=== PATIENT | male | born 1955 | race Caucasian/White ===

== ENCOUNTER → 2017-03-15 | Outpatient (CLI) | payer BC | LOC: BMCIMAGING 08:08 | PROVIDERS: ATTEND Internal Medicine | DX: B18.2 Chronic viral hepatitis C (principal) ==

== ENCOUNTER 2018-07-28 12:22 | Emergency (ER) | payer BC ==
[2018-07-28] MEDS ORDERED: NS 1,000 ML IV ONE (12:36)
--- NOTE | 2018-07-28 12:37 | EDPHY ---
H & P Stated Complaint: Fatigue Time Seen by Provider: 07/28/18 12:36 HPI/ROS: CHIEF COMPLAINT: Fatigue HISTORY OF PRESENT ILLNESS: The patient presents the ED with vague complaints of fatigue, decreased appetite and a sensation that he is catching a cold. He denies any fever, cough or congestion. He denies abdominal pain, vomiting or diarrhea. He has had decreased appetite over the past day. Today he complains of dry mouth as well as symptoms of positional orthostasis. The patient denies significant past medical history outside of hypertension which he takes lisinopril for. He denies any acute headache, numbness, weakness or additional neurologic complaints. REVIEW OF SYSTEMS: A comprehensive 10 point review of systems is otherwise negative aside from elements mentioned in the history of present illness. Source: Patient Exam Limitations: No limitations - Personal History Current Tetanus Diphtheria and Acellular Pertussis (TDAP): Yes - Medical/Surgical History Hx Asthma: No Hx Chronic Respiratory Disease: No Hx Diabetes: No Hx Cardiac Disease: No Hx Renal Disease: No Hx Cirrhosis: No Hx Alcoholism: No Hx HIV/AIDS: No Hx Splenectomy or Spleen Trauma: No Other PMH: htn - Social History Smoking Status: Current every day smoker - Physical Exam Exam: General Appearance: Alert, no distress Eyes: Pupils equal and round no pallor or injection ENT, Mouth: Dry mucous membranes Respiratory: There are no retractions, lungs are clear to auscultation Cardiovascular: Regular rate and rhythm Gastrointestinal: Abdomen is soft and nontender, no masses, bowel sounds normal Neurological: A&O, normal motor function, normal sensory exam, normal cranial nerves Skin: Warm and dry, no rashes Musculoskeletal: Neck is supple nontender Extremities: symmetrical, full range of motion Psychiatric: Patient is oriented X 3, there is no agitation Constitutional: Initial Vital Signs Temperature (C) 36.8 C 07/28/18 12:26 Heart Rate 90 07/28/18 12:26 Respiratory Rate 18 07/28/18 12:26 Blood Pressure 165/105 H 07/28/18 12:26 O2 Sat (%) 94 07/28/18 12:26 O2 Delivery Mode Room Air Allergies/Adverse Reactions: No Known Allergies Allergy (Verified 07/28/18 12:26) Home Medications: Medication Instructions Recorded Lisinopril 07/28/18 Medical Decision Making - Diagnostics EKG Interpretation: EKG: Complete interpretation has been separately recorded in the [email or web address] archive. Summary impression: Sinus rhythm, right axis deviation ED Course/Re-evaluation: The patient presents to the ED with vague complaints of fatigue and dry mouth. The patient is nontoxic and well-appearing. He has no arrhythmia noted in the emergency department. He is hemodynamically stable. The patient has no clinical evidence of an acute abdomen. He has a normal lung and heart exam. The patient did have an IV established. He received a L of normal saline. Laboratory studies are unremarkable. The patient is now tolerating p.o. Fluids. I find no concerning findings on his exam. It is certainly possible he has a mild viral illness. At this point time I think supportive care and observation for progressive symptoms is reasonable. Differential Diagnosis: Differential diagnosis considered includes dehydration, renal failure, metabolic abnormality, viral syndrome - Data Points Laboratory Results: Laboratory Results 07/28/18 12:33 07/28/18 12:33 07/28/18 07/28/18 07/28/18 12:39 12:33 12:33 WBC 10.69 10^3/uL H 10^3/uL (3.80-9.50) RBC 5.18 10^6/uL 10^6/uL (4.40-6.38) Hgb 16.3 g/dL g/dL (13.7-17.5) Hct 47.4 % % (40.0-51.0) MCV 91.5 fL fL (81.5-99.8) MCH 31.5 pg pg (27.9-34.1) MCHC 34.4 g/dL g/dL (32.4-36.7) RDW 12.9 % % (11.5-15.2) Plt Count 181 10^3/uL 10^3/uL (150-400) MPV 9.7 fL fL (8.7-11.7) Neut % (Auto) 72.3 % % (39.3-74.2) Lymph % (Auto) 20.3 % % (15.0-45.0) [place] % (Auto) 6.5 % % (4.5-13.0) Eos % (Auto) 0.2 % L % (0.6-7.6) Baso % (Auto) 0.3 % % (0.3-1.7) Nucleat RBC Rel Count 0.0 % % (0.0-0.2) Absolute Neuts (auto) 7.73 10^3/uL H 10^3/uL (1.70-6.50) Absolute Lymphs (auto) 2.17 10^3/uL 10^3/uL (1.00-3.00) Absolute Monos (auto) 0.70 10^3/uL 10^3/uL (0.30-0.80) Absolute Eos (auto) 0.02 10^3/uL L 10^3/uL (0.03-0.40) Absolute Basos (auto) 0.03 10^3/uL 10^3/uL (0.02-0.10) Absolute Nucleated RBC 0.00 10^3/uL 10^3/uL (0-0.01) Immature Gran % 0.4 % % (0.0-1.1) Immature Gran # 0.04 10^3/uL 10^3/uL (0.00-0.10) Sodium 136 mEq/L mEq/L (135-145) Potassium 3.8 mEq/L mEq/L (3.5-5.2) Chloride 105 mEq/L mEq/L (97-110) Carbon Dioxide 22 mEq/l mEq/l (22-31) Anion Gap 9 mEq/L mEq/L (6-14) BUN 21 mg/dL mg/dL (7-23) Creatinine 0.8 mg/dL mg/dL (0.7-1.3) Estimated GFR > 60 Glucose 146 mg/dL H mg/dL (70-100) Calcium 10.0 mg/dL mg/dL (8.5-10.4) POC Troponin I 0.00 ng/mL ng/mL (0.00-0.08) Medications Given: Discontinued Medications Sodium Chloride (Ns) 1,000 mls @ 0 mls/hr IV EDNOW ONE; Wide Open PRN Reason: Protocol Stop: 07/28/18 12:37 Last Admin: 07/28/18 12:48 Dose: 1,000 mls Point of Care Test Results: Chemistry 07/28/18 12:39 POC Troponin I 0.00 ng/mL ng/mL (0.00-0.08) Departure - Departure Disposition: Home, Routine, Self-Care Clinical Impression: Fatigue Condition: Good Instructions: Fatigue (ED) Additional Instructions: 1. Please try and increase your fluid intake. 2. The workup in the emergency department today is unrevealing. I do believe you may be experiencing a mild viral illness. Please return to the ED for any progressively worsening symptoms or other concerns. 3. Please schedule a follow-up appointment with your primary care provider if unimproved in the next 2-3 days. Referrals: Arvin Beltran MD [Primary Care Provider] - As per Instructions
[2018-07-28 12:55] LABS: PLATELET COUNT 181 10^3/uL (150-400)
--- NOTE | 2018-07-28 13:00 | CPEKG ---
Test Reason : OPEN Blood Pressure : / mmHG Vent. Rate : 092 BPM Atrial Rate : 091 BPM P-R Int : 135 ms QRS Dur : 097 ms QT Int : 367 ms P-R-T Axes : 079 110 068 degrees QTc Int : 455 ms Sinus rhythm Probable left atrial enlargement Right axis deviation Confirmed by Ethan Cardozo ([id number]) on 07/28/2018 12:59:41 PM Referred By: PHYSICIAN ED Confirmed By:Ethan Cardozo
[2018-07-28 14:42] VITALS: BP 143/63
== END 2018-07-28 14:41 | disposition home or self-care (01) ==
DX: R53.83 Other fatigue (principal); E86.9 Volume depletion, unspecified; I10 Essential (primary) hypertension; Z79.899 Other long term (current) drug therapy; F17.200 Nicotine dependence, unspecified, uncomplicated
CPT/HCPCS: 84484-ER